=== PATIENT | female | born 1945 | race Caucasian/White ===

== ENCOUNTER 2023-04-03 05:58 | Day surgery (SDC) | payer OTHER ==
[2023-04-03] MEDS ORDERED: CEFAZOLIN SODIUM 1 GM/VIAL ONE (06:20)
[2023-04-03] MEDS ORDERED: Ringers Lactate 1,000 ML IV ONE (06:20)
[2023-04-03] MEDS ORDERED: LIDOCAINE 1% MPF 5 ML VIAL ONE (06:59)
[2023-04-03] MEDS ORDERED: MIDAZOLAM HCL 2 MG/2 ML INJ ONE (07:00)
[2023-04-03] MEDS ORDERED: FENTANYL CITR 100 MCG/2 ML ONE (07:00)
[2023-04-03] MEDS ORDERED: propofoL 200 MG/20 ML VIAL IV ONE (07:00)
[2023-04-03] MEDS ORDERED: ONDANSETRON 4 MG/2 ML VIAL ONE (07:20)
[2023-04-03] MEDS ORDERED: dexAMETHasone 4 MG/ML VIAL ONE (07:20)
--- NOTE | 2023-04-03 08:53 | OP ---
Date of Procedure: 04/03/2023 Surgeon: Ricky Crowder MD Preoperative Diagnosis: Right carpal tunnel syndrome with right third trigger finger. Postoperative Diagnosis: Right carpal tunnel syndrome with right third trigger finger. Procedure: Right open carpal tunnel release with right third trigger digit release. Estimated Blood Loss: Less than 5 cc. Complications: There were no complications. Specimens: No pathology specimens sent. Indications For Operation: Ms. Vallejo is the patient who came to see me in my office with neurologi len complaints and does have hand CDs, which demonstrate significant carpal tunnel syndrome. Also, d emonstrated pain at the A1 denise as well as active triggering of the third digit. Risks, benefits, and alternatives of different methods of treating this were discussed with the patient. She states s he understands things as presented and wishes to proceed with open carpal tunnel release and trigger digit release concurrently. Description Of Procedure: Patient was taken to the operating room and placed in supine position. Ge neral anesthesia was obtained by staff. Following this, well-padded tourniquet was placed on superio r right arm. Right upper extremity was then prepped and draped in the usual sterile fashion for the procedure. Following this, the arm was then elevated, but not exsanguinated. Tourniquet was raised. A standard transverse incision was made carefully through skin only over the A1 denise of the third digit. Blunt dissection was then used exclusively until the tendon and tendon sheath were encounter ed. This was then divided using a combination of knife and scissors. This was done from a distal to proximal direction until there were no constricting bands and then in a proximal to distal direction until there were no constricting bands. At no time were any sharp instruments were placed outside t he visual field and the finger was brought through range of motion and found to have no sign of abnor mal tendon motion or triggering. Attention was then turned to the carpal tunnel where a standard inc ision was made, which parallels the thenar crease and a slight ulnar deviation at the most distal wri st crease. This was taken down carefully through skin only. Meticulous hemostasis is being maintain ed using bipolar electrocautery. This carefully leads down to the palmar fascia, which was divided l ongitudinally. Any obstructions of the transverse carpal ligament were then gently swept to the side . After this, a small janelle was made in the transverse carpal ligament. It was then expanded in a pr oximal to distal direction until there were no constricting bands. It was then expanded in a distal to proximal direction until there were no constricting bands. At no time were any sharp instruments placed outside the direct visual field and a significant amount of volar forearm fascia was divided. After this, both incisions were closed. Patient was placed in a well-padded sterile dressing, awake sadie, and taken to recovery room in good condition. There were no complications. SE/MODL Voice ID: [id number] Report ID: [id number]
[2023-04-03] MEDS ORDERED: CODEINE 30MG/APAP 300MG TAB ONE (08:54)
[2023-04-03 09:14] VITALS: BP 137/65; TEMP 97; O2SAT 96
--- NOTE | 2023-04-06 17:13 | EKG ---
Test Date: 2023-04-01 Test Time: 12:31:20 Board Catcher: NAKIA MEASUREMENT RESULTS: Intervals: Rate: 82 MT: 168 QRSD: 78 QT: 396 QTc: 462 Barry: P: 28 MT: 168 QRS: 25 T: 72 INTERPRETIVE STATEMENTS: Normal sinus rhythm Normal ECG No previous ECG available for comparison Electronically Signed On 04-06-23 16:57:56 [employer] [facility] by Milad Garza
== END 2023-04-03 09:39 | disposition home or self-care (01) ==
LOC: OR 05:58
PROVIDERS: ATTEND Orthopaedic Surgery
PROC: 01N50ZZ Release Median Nerve, Open Approach (ICD-10-PCS; principal; 2023-04-03 07:00)
PROC: 0LN70ZZ Release Right Hand Tendon, Open Approach (ICD-10-PCS; 2023-04-03 07:00)
DX: G56.01 Carpal tunnel syndrome, right upper limb (principal); M65.331 Trigger finger, right middle finger; I10 Essential (primary) hypertension; F41.9 Anxiety disorder, unspecified; K58.0 Irritable bowel syndrome with diarrhea
CPT/HCPCS: 93005; 36415; 85610; 85730; 64721; 26055; J2704; J1100; J2001; J2250; J3010; J2405; J7120; J0690